=== PATIENT | male | born 1955 | race Caucasian/White ===

== ENCOUNTER 2018-10-21 11:43 | Day surgery (SDC) | payer OTHER ==
[~2018-10-21 11:43] MED LIST: LIDOCAINE 2% (SDV) 5 ML INJ; PROPOFOL 200 MG INJ
[2018-10-21] MEDS ORDERED: PROPOFOL 40 ML (13:26)
== END 2018-10-21 15:51 | disposition home or self-care (01) ==
LOC: GIL 11:43
DX: K29.30 Chronic superficial gastritis without bleeding (principal)
CPT/HCPCS: 43239; 88305; 88312; 88313

== ENCOUNTER 2018-12-19 20:31 | Emergency (ER) | payer OTHER ==
[2018-12-20] MEDS: ACETAMINOPHEN 500 MG TAB PO (00:24)
== END 2018-12-20 02:46 | disposition home or self-care (01) ==
LOC: FTE 20:31
DX: M54.5 Low back pain (principal)
CPT/HCPCS: 72220; 99283-25

== ENCOUNTER 2019-02-27 16:03 | Emergency (ER) | payer OTHER ==
[2019-02-27] MEDS: SOD CHLORIDE 0.9% 1,000 ML IV (16:38)
[2019-02-27] MEDS: ONDANSETRON 4 MG INJ IV ×2 (16:38→20:43)
[2019-02-27] MEDS: LORAZEPAM 2 MG INJ IV (16:38)
[2019-02-27] MEDS ORDERED: DEXTROSE 50% 50 ML SYRINGE (16:43)
[2019-02-27] MEDS: DEXTROSE 50% 50 ML SYRINGE IV (16:47)
[2019-02-27 17:29] LABS: ADD MAN DIFF? NO
[2019-02-27 18:50] LABS: EOSINOPHILS % 2.8 % (0.0-7.0); HEMATOCRIT 28.3 % (42.0-52.0); HEMOGLOBIN 9.6 g/dl (14.0-18.0); LYMPHOCYTES % 32.3 % (15.0-51.0); MEAN CORPUSCULAR HEMOGLOBIN 30.8 pg (29.0-33.0); MEAN CORPUSCULAR HGB CONC 33.9 g/dl (32.0-37.0); MEAN CORPUSCULAR VOLUME 90.7 fl (82.0-101.0); MEAN PLATELET VOLUME 13.9 fl (7.4-10.4); MONOCYTES % 11.8 % (0.0-11.0); PLATELET COUNT 100 10^3/UL (140-415); RED BLOOD COUNT 3.12 10^6/ul (4.70-6.10); RED CELL DISTRIBUTION WIDTH 14.3 % (11.5-14.5)
[2019-02-27 18:51] LABS: BASOPHILS % 0.8 % (0.0-2.0); LYMPHOCYTES # 1.3 10^3/ul (0.8-2.9); NEUTROPHIL # 2.1 10^3/ul (1.6-7.5)
[2019-02-27 18:52] LABS: EOSINOPHILS # 0.1 10^3/ul (0.0-0.5); MONOCYTE # 0.5 10^3/ul (0.3-0.9)
[2019-02-27 19:32] LABS: CHLORIDE 106 mmol/L (97-110); POTASSIUM 3.9 mmol/L (3.5-5.1); SODIUM 136 mmol/L (135-144)
[2019-02-27 19:33] LABS: ANION GAP 7 (5-13); BLOOD UREA NITROGEN 15 mg/dl (7-20); CALCIUM 8.4 mg/dl (8.4-10.2); CARBON DIOXIDE 23 mmol/L (21-31); CREATININE 1.04 mg/dl (0.61-1.24); Estimated GFR > 60 mL/min (>60); GLUCOSE 177 mg/dl (70-220)
[2019-02-27 20:04] LABS: TROPONIN-I < 0.012 ng/ml (0.000-0.120)
== END 2019-02-27 21:24 | disposition home or self-care (01) ==
LOC: E/R 16:03
DX: R55 Syncope and collapse (principal); R42 Dizziness and giddiness
CPT/HCPCS: 36415; 80048; 82962; 84484; 85025; 93005; 96374; 96375; 96376; 99284-25